=== PATIENT | male | born 1955 | race Two or more races ===

== ENCOUNTER 2018-12-05 16:22 | Inpatient (IN) | payer MEDICARE, MEDICAID ==
[~2018-12-05] VITALS: Ht 162.6 cm; Wt 64.9 kg
--- NOTE | 2018-12-05 17:00 | NUR ---
URINE SPECIMEN COLLECTED AND SENT TO LAB.
--- NOTE | 2018-12-05 17:25 | NUR ---
SEEN AND EXAMINED BY MS. JOSE BAEZ
[2018-12-05] MEDS ORDERED: ASPI-1169 PO (17:40)
[2018-12-05] MEDS ORDERED: LOSA50TA39 PO (17:40)
[2018-12-05] MEDS ORDERED: VIT1TABL46 PO (17:40)
[2018-12-05] MEDS ORDERED: FOLI1TAB16 PO (17:40)
[2018-12-05] MEDS ORDERED: METO50TA16 PO (17:40)
[2018-12-05] MEDS ORDERED: NIFE30TA2 PO (17:40)
[2018-12-05] MEDS ORDERED: THIA500T PO (17:40)
[2018-12-05] MEDS ORDERED: TYL2T PO (17:40)
[2018-12-05] MEDS ORDERED: MULT1TAB73 PO (17:40)
[2018-12-05] MEDS ORDERED: FAMO20TA8 PO (17:40)
[2018-12-05] MEDS ORDERED: CLON0.1T PO (17:40)
[2018-12-05] MEDS ORDERED: ATOR80TA PO (17:40)
[2018-12-05] MEDS ORDERED: SPIR25TA PO (17:40)
[2018-12-05] MEDS ORDERED: BISA10SU61 RC (17:40)
[2018-12-05] MEDS ORDERED: OLAN5TAB3 PO (17:40)
[2018-12-05] MEDS ORDERED: CHOL200026 PO (17:40)
[2018-12-05] MEDS ORDERED: MELA10CA PO (17:40)
[2018-12-05] MEDS ORDERED: [UNRECOGNIZED DRUG - CODE] SQ (17:40)
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
[2018-12-05 17:46] LABS: APPEARANCE,URINE Clear (CLEAR); BILIRUBIN,URINE Negative (NEGATIVE); BLOOD, URINE Trace-lysed Ery/uL (NEGATIVE); COLOR,URINE Yellow (YELLOW); KETONES,URINE Negative (NEGATIVE); LEUKOCYTE ESTERASE ,URINE Negative (NEGATIVE); NITRITE, URINE Negative (NEGATIVE); PROTEIN,URINE >=300 mg/dl (NEGATIVE); UGLUCOSE Negative (NEGATIVE); UROBILINOGEN,URINE 0.2 EU/dL (0.2)
--- NOTE | 2018-12-05 17:46 | NUR ---
ER PHLEB AT BEDSIDE FOR EVAL.
[2018-12-05 17:53] LABS: BACTERIA,URINE None seen /HPF (None Seen); SQUAMOUS EPITHELIAL CELL,UR Few /HPF (None Seen); WBC,URINE 0-2 /HPF (0-3)
[2018-12-05 17:58] LABS: BASOPHILS # (AUTO) 0.1 /CMM (0.0-0.2); BASOPHILS % (AUTO) 0.8 % (0.0-2.0); EOSINOPHILS % (AUTO) 4.5 % (0.0-6.0); HEMATOCRIT 34 % (39-51); LYMPHOCYTES # (AUTO) 2.7 /CMM (0.8-4.8); LYMPHOCYTES % (AUTO) 30.1 % (20.0-44.0); MEAN CORPUSCULAR HGB CONC 32 g/dl (31.0-36.0); MEAN CORPUSCULAR VOLUME 99 fL (80-96); MONOCYTES # (AUTO) 1.1 /CMM (0.1-1.30); MONOCYTES % (AUTO) 12.6 % (2.0-12.0); NEUTROPHILS # (AUTO) 4.7 /CMM (1.8-8.9); PLATELET COUNT (AUTO) 247 /CMM (150-450); RED BLOOD CELL COUNT(AUTO) 3.42 MIL/uL (4.5-6.0)
--- NOTE | 2018-12-05 18:00 | NUR ---
PT REC'D A DINNER TRAY.
[2018-12-05 18:05] LABS: CALCIUM, SERUM 9.2 mg/dL (8.5-10.1); CARBON DIOXIDE 24 mmol/L (21-32); CHLORIDE 108 mmol/L (98-107); CREATININE 2.4 mg/dL (0.6-1.3); GLUCOSE 95 mg/dL (74-106); POTASSIUM 4.3 mmol/L (3.5-5.1); SODIUM SERUM 139 mmol/L (136-145); UREA NITROGEN, BLOOD 53 mg/dL (7-18)
[2018-12-05 18:11] LABS: ALANINE AMINOTRANSFERASE 48 U/L (12-78); ALBUMIN 2.9 g/dL (3.4-5.0); ALCOHOL, BLOOD < 3 mg/dL (0-0); ALKALINE PHOSPHATASE 105 U/L (46-116); ASPARTATE AMINOTRANSFERASE 38 U/L (15-37); BILIRUBIN,DIRECT 0.1 mg/dL (0.0-0.2); BILIRUBIN,TOTAL 0.3 mg/dL (0.2-1.0); TOTAL PROTEIN, SERUM 7.7 g/dL (6.4-8.2)
[2018-12-05 18:12] LABS: SALICYLATE < 2.8 mg/dL (2.8-20.0)
[2018-12-05 18:13] LABS: ACETAMINOPHEN < 2 ug/ml (10-30)
[2018-12-05] MEDS ORDERED: IV NS 0.9% 1,000 ML BAG IV ONE (18:30)
--- NOTE | 2018-12-05 19:16 | NUR ---
PAGED CRISIS FOR EVAL - HOUSE REGISTRY RN SKINNY - ETA 60 MIN
[2018-12-05] MEDS ORDERED: OLANZAPINE 10 MG VIAL IM ONE ×2 (19:18→19:30)
--- NOTE | 2018-12-05 19:18 | NUR ---
REPORT GIVEN TO JANAE HUNTER FOR [facility].
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
--- NOTE | 2018-12-05 20:00 | NUR ---
SKINNY, SURVEY CREW CHIEF AT BEDSIDE FOR EVAL
--- NOTE | 2018-12-05 21:17 | NUR ---
BED 214-2
--- NOTE | 2018-12-05 21:50 | NUR ---
REPORT GIVEN TO JANAE PETERS FOR [facility]
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
[2018-12-05 22:15] VITALS: BP 146/88
[2018-12-05] MEDS ORDERED: ACETAMINOPHEN 325 MG TABLET PO PRN (22:30)
[2018-12-05] MEDS ORDERED: MAGNESIUM HYDROXIDE 30 ML UDC PO PRN (22:30)
[2018-12-05] MEDS ORDERED: MAG HYDROX/AL HYDROX/SIMETH 30 ML UDC PO PRN (22:30)
[2018-12-05] MEDS: LORAZEPAM 0.5 MG TABLET PO PRN (22:52)
[2018-12-05] MEDS: TEMAZEPAM 7.5 MG CAPSULE PO PRN (23:26)
[2018-12-06] MEDS ORDERED: ACETAMINOPHEN 325 MG TABLET PO PRN (05:00)
[2018-12-06 08:00] VITALS: BP 110/59
[2018-12-06] MEDS: METOPROLOL TARTRATE 50 MG TABLET PO SCH ×3 (08:00→18:54)
[2018-12-06] MEDS ORDERED: BISACODYL SUPP (10 MG) 10 MG/SUPP.RECT SUPP.RECT RC PRN (08:12)
[2018-12-06] MEDS: CLONIDINE HCL 0.1 MG TABLET PO SCH ×2 (09:00→18:48)
[2018-12-06] MEDS: LOSARTAN POTASSIUM 50 MG TABLET PO SCH ×2 (09:00→18:48)
[2018-12-06] MEDS: ASPIRIN 81 MG TAB.CHEW PO SCH (10:47)
[2018-12-06] MEDS: FAMOTIDINE (20 MG) 20 MG TABLET PO SCH (10:47)
[2018-12-06] MEDS: FOLIC ACID 1 MG TABLET PO SCH (10:47)
[2018-12-06] MEDS: LORAZEPAM 0.5 MG TABLET PO PRN (10:49)
--- NOTE | 2018-12-06 10:56 | NUR ---
WOUND CARE CONSULT: PT PRESENTS WITH DRY SCABS AND SCRATCH SALAS TO LOWER LEGS AND PERINEAL REDNESS, PRESENT ON ADMISSION. DEFER TO MD FOR LOWER LEG SKIN CONDITION, UNKNOWN ETIOLOGY. RECOMMENDATIONS MADE FOR SKIN PROTECTION AND INCONTINENCE CARE. DISCUSSED WITH NURSING STAFF. WILL SEE PRN. MD IN AGREEMENT WITH PLAN OF CARE. CURRENT GLORIA SCORE IS 18.
[2018-12-06] MEDS ORDERED: Z GUARD REMEDY 2 OZ OINT TP PRN (11:00)
[2018-12-06 11:18] LABS: ALBUMIN 2.9 g/dL (3.4-5.0); BILIRUBIN,TOTAL 0.5 mg/dL (0.2-1.0); CALCIUM, SERUM 9.3 mg/dL (8.5-10.1); CREATININE 2.4 mg/dL (0.6-1.3); POTASSIUM 4.4 mmol/L (3.5-5.1); TOTAL PROTEIN, SERUM 7.7 g/dL (6.4-8.2)
--- NOTE | 2018-12-06 12:18 | NUR ---
SW called the pt's son, Anthony ([phone]), and informed him that the pt is in the geropsych unit of the hospital and discussed the initial discharge plan of returning to [facility] if they are willing to accept him back or sending him to an alternative penitentiary facility. Pt's son stated that he does not have a relationship with the pt and has not seen the pt in over a year but would like to reconnect. SW provided him with the visiting hours and encouraged him to make time for a visit.
--- NOTE | 2018-12-06 12:22 | NUR ---
ALLEGRA called [facility] ([phone]) and spoke to Gilberto in the admissions department who stated that if the pt is stable upon discharge then the facility will re-accept him.
--- NOTE | 2018-12-06 12:51 | NUR ---
Initial Discharge Plan: Pt currently resides at [facility] located at [address] [place] [address]. [place] [phone]; ([phone]). Per pt, he would like to return. Per facility, ALLEGRA was told that the pt would have to be evaluated for stability upon discharge. ALLEGRA will work with the pt and the MD regarding appropriate discharge planning. SW will form a safe and proper discharge.
[2018-12-06] MEDS: Z GUARD REMEDY 2 OZ OINT TP SCH (13:52)
[2018-12-06 16:00] VITALS: BP 143/63
[2018-12-06] MEDS: OLANZAPINE 5 MG TABLET PO SCH ×2 (18:47→21:54)
[2018-12-06 20:00] VITALS: BP 152/98
--- NOTE | 2018-12-06 23:13 | NUR ---
RN NOTES: PATIENT WAS ASLEEP IN BETWEEN, DUE MEDICATION GIVEN, AT AROUND 2300 HE WAS AWAKEN, TRYING TO GET UP FROM HIS BED, NOTICE HE URINATE IN HIS BRIEF, CLEAN AND CHANGE, AFTER THAT HE GO BACK TO SLEEP, KEPT COMFORTABLE IN BED.
[2018-12-06] MEDS: TEMAZEPAM 7.5 MG CAPSULE PO PRN (23:42)
--- NOTE | 2018-12-06 23:43 | NUR ---
RN NOTES: AWAKE,TURNING SIDE TO SIDES, TRYING TO GET UP, OFFERED TOO HIM WILL GIVE SLEEPING MEDICATION TO MAKE HIM RELAX AND GO BACK TO SLEEP, HE AGREED. RESTORIL GIVEN.
--- NOTE | 2018-12-07 00:42 | NUR ---
RN NOTES: ASLEEP AT SHORT INTERVALS.KEPT ON CLOSE WATCH, FALL,SAFETY AND ASPIRATION PRECAUTION OBSERVED, BED LOW AND LOCKED.
--- NOTE | 2018-12-07 01:10 | NUR ---
RN NOTES: TURN AND REPOSITIONING DONE, BOTH HEEL ELEVATED AND OFF LOADED.KEPT ON CLOSE WATCH.ASLEEP IN BETWEEN.
[2018-12-07] MEDS: LORAZEPAM 0.5 MG TABLET PO PRN (01:33)
--- NOTE | 2018-12-07 01:34 | NUR ---
RN NOTES: TRYING TO GET OUT FROM HIS BED, LOOKS RESTLESS, TURNING FROM SIDE TO SIDE AND REMOVING HIS BLANKET,RE-ASSURED AND TRY TO CALM HIM DOWN, LOOKS ANXIOUS, GIVEN PRN MEDICATION AND OFFERED FOOD,HE ATE PUDDING, APPLESAUCE AND DRINK JUICE.KEPT ON CLOSE WATCH, BED LOW AND LOCKED.
[2018-12-07 08:00] VITALS: BP 142/98
[2018-12-07 08:09] LABS: ALBUMIN 2.7 g/dL (3.4-5.0); BILIRUBIN,DIRECT 0.1 mg/dL (0.0-0.2); BILIRUBIN,TOTAL 0.5 mg/dL (0.2-1.0); CALCIUM, SERUM 9.1 mg/dL (8.5-10.1); CREATININE 2.3 mg/dL (0.6-1.3); POTASSIUM 4.1 mmol/L (3.5-5.1); TOTAL PROTEIN, SERUM 7.4 g/dL (6.4-8.2)
[2018-12-07] MEDS: OLANZAPINE 5 MG TABLET PO SCH ×3 (09:29→21:15)
[2018-12-07] MEDS: CLONIDINE HCL 0.1 MG TABLET PO SCH ×2 (09:29→17:15)
[2018-12-07] MEDS: Z GUARD REMEDY 2 OZ OINT TP SCH (09:29)
[2018-12-07] MEDS: FOLIC ACID 1 MG TABLET PO SCH (09:29)
[2018-12-07] MEDS: METOPROLOL TARTRATE 50 MG TABLET PO SCH ×3 (09:30→17:15)
[2018-12-07] MEDS: LOSARTAN POTASSIUM 50 MG TABLET PO SCH (09:30)
[2018-12-07] MEDS: ASPIRIN 81 MG TAB.CHEW PO SCH (09:30)
[2018-12-07] MEDS: FAMOTIDINE (20 MG) 20 MG TABLET PO SCH (09:30)
[2018-12-07 16:00] VITALS: BP 148/99
--- NOTE | 2018-12-07 22:00 | NUR ---
RN NOTES PT. REFUSED TO TAKE HIS ZYPREXA.. CHARGE NURSE MADE AWARE
--- NOTE | 2018-12-08 07:05 | NUR ---
GPS RN INITIAL NOTES Report received at bedside. Patient received in bed, sleeping, easily aroused. No signs and symptoms of distress. No SOB noted. Safety measures in place. Will continue to monitor and assess patient.
[2018-12-08 08:00] VITALS: BP 184/92
[2018-12-08] MEDS: Z GUARD REMEDY 2 OZ OINT TP SCH (08:18)
[2018-12-08] MEDS: FAMOTIDINE (20 MG) 20 MG TABLET PO SCH (08:19)
[2018-12-08] MEDS: ASPIRIN 81 MG TAB.CHEW PO SCH (08:19)
[2018-12-08] MEDS: FOLIC ACID 1 MG TABLET PO SCH (08:20)
[2018-12-08] MEDS: CLONIDINE HCL 0.1 MG TABLET PO SCH ×2 (08:20→16:42)
[2018-12-08] MEDS: OLANZAPINE 5 MG TABLET PO SCH ×3 (08:20→21:37)
[2018-12-08] MEDS: METOPROLOL TARTRATE 50 MG TABLET PO SCH ×3 (08:20→18:23)
--- NOTE | 2018-12-08 08:21 | NUR ---
GPS RN NOTES BP 184/92 P92 - Charge nurse aware of patient's blood pressure.
[2018-12-08 16:00] VITALS: BP 146/96
[2018-12-08] MEDS: LORAZEPAM 0.5 MG TABLET PO PRN (16:39)
--- NOTE | 2018-12-08 16:45 | NUR ---
GPS RN NOTES Patient was trying to get up from bed, agitated. Reorient patient but continues to try to get up. Patient was transferred to chair then to activity room for continuous monitoring for safety and behavior
--- NOTE | 2018-12-08 18:28 | NUR ---
GPS RN CLOSING NOTES Patient remained in activity room in chair. All due meds given and tolerated. No signs and symptoms of distress/side effects noted. No SOB noted. Kept patient clean, dry and comfortable. Blood pressure wnl. Continuous monitoring for safety and behavior. Safety measures in place. Will endorse to oncoming shift nurse.
[2018-12-08 20:11] VITALS: BP 112/86
[2018-12-08] MEDS: TEMAZEPAM 7.5 MG CAPSULE PO PRN (22:31)
[2018-12-09 07:06] LABS: ALBUMIN 2.8 g/dL (3.4-5.0); BILIRUBIN,TOTAL 0.5 mg/dL (0.2-1.0); CALCIUM, SERUM 9.2 mg/dL (8.5-10.1); CREATININE 2.4 mg/dL (0.6-1.3); MAGNESIUM 2.2 mg/dL (1.8-2.4); PHOSPHORUS 4.5 mg/dL (2.5-4.9); TOTAL PROTEIN, SERUM 7.8 g/dL (6.4-8.2)
[2018-12-09 07:10] LABS: BASOPHILS # (AUTO) 0.1 /CMM (0.0-0.2); BASOPHILS % (AUTO) 0.7 % (0.0-2.0); EOSINOPHILS % (AUTO) 3.4 % (0.0-6.0); HEMATOCRIT 37 % (39-51); HEMOGLOBIN 12.4 g/dL (13.5-17.5); LYMPHOCYTES # (AUTO) 2.7 /CMM (0.8-4.8); LYMPHOCYTES % (AUTO) 27.8 % (20.0-44.0); MEAN CORPUSCULAR HGB CONC 34 g/dl (31.0-36.0); MEAN CORPUSCULAR VOLUME 98 fL (80-96); MONOCYTES # (AUTO) 1.1 /CMM (0.1-1.30); MONOCYTES % (AUTO) 10.8 % (2.0-12.0); NEUTROPHILS # (AUTO) 5.7 /CMM (1.8-8.9); NEUTROPHILS % (AUTO) 57.3 % (43.0-81.0); PLATELET COUNT (AUTO) 235 /CMM (150-450); WHITE BLOOD COUNT (AUTO) 9.9 K/uL (4.3-11.0)
[2018-12-09] MEDS: FAMOTIDINE (20 MG) 20 MG TABLET PO SCH (07:30)
[2018-12-09 08:00] VITALS: BP 180/112
[2018-12-09] MEDS: OLANZAPINE 5 MG TABLET PO SCH ×3 (08:39→21:00)
[2018-12-09] MEDS: FOLIC ACID 1 MG TABLET PO SCH (08:39)
[2018-12-09] MEDS: METOPROLOL TARTRATE 50 MG TABLET PO SCH ×3 (08:39→18:00)
[2018-12-09] MEDS: CLONIDINE HCL 0.1 MG TABLET PO SCH ×2 (08:39→17:16)
[2018-12-09] MEDS: ASPIRIN 81 MG TAB.CHEW PO SCH (08:39)
[2018-12-09] MEDS: LOSARTAN POTASSIUM 50 MG TABLET PO SCH (08:40)
[2018-12-09] MEDS: Z GUARD REMEDY 2 OZ OINT TP SCH (08:41)
[2018-12-09 16:00] VITALS: BP 138/76
[2018-12-09 19:45] VITALS: BP 146/78
[2018-12-09] MEDS: TEMAZEPAM 7.5 MG CAPSULE PO PRN (21:34)
[2018-12-10] MEDS: FAMOTIDINE (20 MG) 20 MG TABLET PO SCH (07:30)
[2018-12-10 08:00] VITALS: BP 159/92
[2018-12-10] MEDS: ASPIRIN 81 MG TAB.CHEW PO SCH (08:35)
[2018-12-10] MEDS: FOLIC ACID 1 MG TABLET PO SCH (08:36)
[2018-12-10] MEDS: CLONIDINE HCL 0.1 MG TABLET PO SCH ×2 (08:37→17:33)
[2018-12-10] MEDS: LOSARTAN POTASSIUM 50 MG TABLET PO SCH (08:38)
[2018-12-10] MEDS: METOPROLOL TARTRATE 50 MG TABLET PO SCH ×3 (08:39→17:34)
[2018-12-10] MEDS: OLANZAPINE 5 MG TABLET PO SCH ×3 (08:40→21:26)
[2018-12-10] MEDS: Z GUARD REMEDY 2 OZ OINT TP SCH (08:41)
--- NOTE | 2018-12-10 10:33 | NUR ---
ALLEGRA called [facility] ([phone]) and spoke to Gilberto in the admissions department and she stated that Otto would come out and assess the pt today. ALLEGRA provided her with information regarding the pts medications as well as what his present behavior is like. She stated that the pt sounds like he has improved and that she would call the SW back once the assessment has been conducted.
--- NOTE | 2018-12-10 15:03 | NUR ---
Otto from [facility] ([phone]) came to assess the pt and then met with the SW to state that the pt can return to the facility the following day. He stated that they will keep him for a few weeks and then send him to an Assisted Living that has accepted him.
--- NOTE | 2018-12-10 15:05 | NUR ---
ALLEGRA called the pt's son, Anthony ([phone]), and left him a message on his voicemail stating that the pt will be discharged tomorrow back to [facility].
[2018-12-10 16:00] VITALS: BP 127/90
[2018-12-10 20:20] VITALS: BP 100/59
[2018-12-10] MEDS: TEMAZEPAM 7.5 MG CAPSULE PO PRN (21:26)
[2018-12-10] MEDS: LORAZEPAM 0.5 MG TABLET PO PRN (21:26)
[2018-12-11 08:00] VITALS: BP 145/80
[2018-12-11] MEDS: ASPIRIN 81 MG TAB.CHEW PO SCH (08:35)
[2018-12-11] MEDS: FOLIC ACID 1 MG TABLET PO SCH (08:35)
[2018-12-11] MEDS: LOSARTAN POTASSIUM 50 MG TABLET PO SCH (08:36)
[2018-12-11] MEDS: CLONIDINE HCL 0.1 MG TABLET PO SCH (08:36)
[2018-12-11] MEDS: FAMOTIDINE (20 MG) 20 MG TABLET PO SCH (08:36)
[2018-12-11] MEDS: METOPROLOL TARTRATE 50 MG TABLET PO SCH ×2 (08:37→13:00)
[2018-12-11] MEDS: OLANZAPINE 5 MG TABLET PO SCH (08:37)
[2018-12-11] MEDS: Z GUARD REMEDY 2 OZ OINT TP SCH (08:39)
[2018-12-11 11:36] LABS: ALBUMIN 2.6 g/dL (3.4-5.0); BASOPHILS # (AUTO) 0.1 /CMM (0.0-0.2); BASOPHILS % (AUTO) 0.8 % (0.0-2.0); BILIRUBIN,TOTAL 0.5 mg/dL (0.2-1.0); CALCIUM, SERUM 9.1 mg/dL (8.5-10.1); CREATININE 2.7 mg/dL (0.6-1.3); EOSINOPHILS % (AUTO) 1.9 % (0.0-6.0); HEMATOCRIT 35 % (39-51); HEMOGLOBIN 11.8 g/dL (13.5-17.5); LYMPHOCYTES # (AUTO) 2.5 /CMM (0.8-4.8); LYMPHOCYTES % (AUTO) 23.8 % (20.0-44.0); MAGNESIUM 2.4 mg/dL (1.8-2.4); MEAN CORPUSCULAR HGB CONC 34 g/dl (31.0-36.0); MEAN CORPUSCULAR VOLUME 97 fL (80-96); MONOCYTES % (AUTO) 9.5 % (2.0-12.0); NEUTROPHILS # (AUTO) 6.6 /CMM (1.8-8.9); PLATELET COUNT (AUTO) 234 /CMM (150-450); POTASSIUM 4.4 mmol/L (3.5-5.1); TOTAL PROTEIN, SERUM 7.4 g/dL (6.4-8.2); WHITE BLOOD COUNT (AUTO) 10.4 K/uL (4.3-11.0)
--- NOTE | 2018-12-11 11:41 | NUR ---
ALLEGRA faxed updated notes to [facility] ([facility]) with attention to Gilberto to the fax number: [phone].
[2018-12-11 13:00] VITALS: BP 119/57
--- NOTE | 2018-12-11 15:01 | NUR ---
Discharge Note: Pt was discharged to [facility] ([facility]) located at [address] [place] [address]; in [address]. Pt was transported via [facility] (Trip #[id number]) at 3PM. Pts son, Anthony ([phone]), was notified of the discharge. Upon discharge, the pt appeared to be in a euthymic mood and presented with a calm affect. Pt stated that he was content about being able to return to the facility and leave the hospital where he felt like he did not belong. Pt denied both suicidal and homicidal ideation as well as auditory and visual hallucinations. Pt was also provided with smoking cessation referrals at the time of discharge that are listed below. Pt will be under the care of his psychiatrist, Dr. Hurley, located at [facility] [place] [address]; and his plant science professor, Dr. Wetzel, located at [address], [place] [address]; . [employer] [id number] [employer] [phone] Pt was referred to a Nicotine Anonymous Phone Meeting for December 12 at 12PM with the phone number: [phone].
--- NOTE | 2018-12-11 16:00 | NUR ---
PATIENT DISCHARGE TO [facility], IN STABLE CONDITION, DENIES SI/HI/AH/VH, NO SOB, NO ACUTE DISTRESS, BREATHING EVEN AND UNLABORED, NO S/S OF PAIN AND DISCOMFORT, REPORT GIVEN TO VLAD CARDOSO. PATIENT PICKED UP VIA [facility] WITH 2 PERSONS ASSIST C/O MADDISON. DISCHARGED
[2018-12-12 12:09] LABS: PTH, INTACT 61 pg/mL (15-65)
[2018-12-12 14:12] LABS: *SPE A/G RATIO 0.7 (0.7-1.7); *SPE ALBUMIN 2.8 g/dL (2.9-4.4); *SPE ALPHA-1-GLOBULIN 0.2 g/dL (0.0-0.4); *SPE ALPHA-2-GLOBULIN 0.9 g/dL (0.4-1.0); *SPE BETA GLOBULIN 1.1 g/dL (0.7-1.3); *SPE M-SPIKE Not Observed g/dL (Not Observed); *SPEGAMMA GLOBULIN 1.7 g/dL (0.4-1.8)
== END 2018-12-11 16:00 | DRG 885 ==
LOC: ER 16:26 → GPS 21:30
PROVIDERS: ADMIT Psychiatry & Neurology Psychiatry; ATTEND Psychiatry & Neurology Psychiatry
DX: F29 Unspecified psychosis not due to a substance or known physiological condition (principal); N17.0 Acute kidney failure with tubular necrosis; N18.9 Chronic kidney disease, unspecified; B19.20 Unspecified viral hepatitis C without hepatic coma; G93.41 Metabolic encephalopathy; F03.91 Unspecified dementia, unspecified severity, with behavioral disturbance; E44.0 Moderate protein-calorie malnutrition; Z73.6 Limitation of activities due to disability; E11.22 Type 2 diabetes mellitus with diabetic chronic kidney disease; I12.9 Hypertensive chronic kidney disease with stage 1 through stage 4 chronic kidney disease, or unspecified chronic kidney disease; K21.9 Gastro-esophageal reflux disease without esophagitis; Z86.73 Personal history of transient ischemic attack (TIA), and cerebral infarction without residual deficits; E78.5 Hyperlipidemia, unspecified; R13.10 Dysphagia, unspecified; Z79.01 Long term (current) use of anticoagulants; Z79.82 Long term (current) use of aspirin; Z79.899 Other long term (current) drug therapy; D63.8 Anemia in other chronic diseases classified elsewhere; I25.2 Old myocardial infarction
CPT/HCPCS: 36415; 76705-TC; 80048-TC; 80053-TC; 80061-TC; 80076-TC; 80305; 81000-TC; 82550-TC; 82962-TC; 83735-TC; 83970; 84100-TC; 84155; 84165; 85025-TC; 87081-TC; G0480; J3490; J7030